=== PATIENT | male | born 1950 | race Caucasian/White ===

== ENCOUNTER 2018-11-09 08:06 | Day surgery (SDC) | payer BC ==
[2018-11-06 15:03] VITALS: BMI 31.5
[2018-11-09 10:23] VITALS: TEMP 98
[2018-11-09 11:09] VITALS: BP 118/82; PULSE 53
--- NOTE | 2018-11-10 16:15 | PATH ---
Surgical Pathology Report Patient Name: TRUMAN DUBON [facility]. Rec. #: [id number] /Age/Gender: 1950 (Age: 68) / M Account: [id number] Location: U-ENDOSCOPY Taken: 11/09/2018 Received: 11/09/2018 Reported: 11/10/2018 Physicians: Margaret Mitchell M.D. Specimen(s) Received A: BX ASCENDING COLON POLYP B: POLYP CECUM Clinical History Adenoma surveillance Postoperative diagnosis: Colon polyps Final Diagnosis A. ASCENDING COLON POLYP, POLYPECTOMY: TUBULAR ADENOMA. B. CECAL POLYP, POLYPECTOMY: TUBULAR ADENOMA. Electronically Signed Wilfredo Jernigan M.D. Gross Description A. Received in formalin, labeled "biopsy ascending colon polyp" are 4 elise, irregular portions of soft tissue ranging from 0.2-0.3 cm. in greatest dimension. The specimens are submitted in toto in one cassette. B. Received in formalin, labeled "polyps cecum" are 6 elise, irregular portions of soft tissue ranging from 0.1-0.4 cm. in greatest dimension. The specimens are submitted in toto in one cassette. DL/11/09/2018 saudi11/09/2018
== END 2018-11-09 11:10 | disposition home or self-care (01) ==
LOC: JASU-ENDO 08:06
PROVIDERS: ATTEND Internal Medicine Gastroenterology
PROC: 0DBK8ZX Excision of Ascending Colon, Via Natural or Artificial Opening Endoscopic, Diagnostic (ICD-10-PCS; 2018-11-09)
PROC: 0DBH8ZX Excision of Cecum, Via Natural or Artificial Opening Endoscopic, Diagnostic (ICD-10-PCS; principal; 2018-11-09 09:15)
DX: Z12.11 Encounter for screening for malignant neoplasm of colon (principal); D12.2 Benign neoplasm of ascending colon; D12.0 Benign neoplasm of cecum; K64.8 Other hemorrhoids; K57.30 Diverticulosis of large intestine without perforation or abscess without bleeding
CPT/HCPCS: 88305-TC

== ENCOUNTER 2022-06-14 05:25 | Day surgery (SDC) | payer BC ==
[2022-06-12 13:49] VITALS: BMI 28.7
[2022-06-14 10:30] VITALS: TEMP 97.8
[2022-06-14 10:43] VITALS: BP 116/98; PULSE 59; RESP 18
== END 2022-06-14 10:55 | disposition home or self-care (01) ==
LOC: JASU-ENDO 05:25
PROVIDERS: ATTEND Internal Medicine Gastroenterology
PROC: 0DBH8ZX Excision of Cecum, Via Natural or Artificial Opening Endoscopic, Diagnostic (ICD-10-PCS; 2022-06-14)
PROC: 0D5L8ZZ Destruction of Transverse Colon, Via Natural or Artificial Opening Endoscopic (ICD-10-PCS; principal; 2022-06-14 09:30)
DX: Z12.11 Encounter for screening for malignant neoplasm of colon (principal); D12.0 Benign neoplasm of cecum; D12.3 Benign neoplasm of transverse colon; K57.30 Diverticulosis of large intestine without perforation or abscess without bleeding; K64.8 Other hemorrhoids
CPT/HCPCS: 88305-TC